=== PATIENT | female | born 1975 | race Two or more races ===

== ENCOUNTER 2016-09-21 23:36 | Emergency (ER) | payer OTHER ==
[~2016-09-21] VITALS: Ht 160 cm; Wt 4.0 kg
[~2016-09-21 23:36] MED LIST: AZIT250T6 PO; IBUP200T43 PO; ONDA4TAB12 PO; PRED20TA PO; PRED50TA PO
[2016-09-21 23:50] VITALS: BP 110/66
--- NOTE | 2016-09-21 23:50 | ED.ADGEN ---
Past History Past Medical History: No Pertinent History, Asthma, Bronchitis, Other Past Surgical History: No Surgical History, Other Alcohol Use: Occasionally Drug Use: None Adult General Chief Complaint Chief Complaint Right hand laceration HPI HPI Patient is a 40 year old female who presents with had a laceration. She states she cut it on a broken mirror. She is unsure when her last tetanus shot was. Review of Systems Review of Systems Constitutional: Denies fever or chills [] Eyes: Denies change in visual acuity, redness, or eye pain [] HENT: Denies nasal congestion or sore throat [] Respiratory: Denies cough or shortness of breath [] Cardiovascular: No additional information not addressed in HPI [] GI: Denies abdominal pain, nausea, vomiting, bloody stools or diarrhea [] : Denies dysuria or hematuria [] Musculoskeletal: Denies back pain or joint pain [] Integument: Denies rash or skin lesions, positive for laceration Neurologic: Denies headache, focal weakness or sensory changes [] Endocrine: Denies polyuria or polydipsia [] Current Medications Current Medications Current Medications Medications (Trade) Dose Ordered Sig/Camille Start Time Stop Time Status Last Admin Dose Admin Diphtheria/ Tetanus/Acell Pertussis (Boostrix) 0.5 ml ONCE ONCE 09/22/16 00:15 09/22/16 00:16 UNV 09/22/16 00:17 0.5 ML Lidocaine/Sodium Bicarbonate (Buffered Lidocaine 1%) 3 ml 1X ONCE 09/22/16 00:15 09/22/16 00:16 UNV 09/22/16 00:15 3 ML Allergies Allergies Allergies Coded Allergies Type Severity Reaction Last Updated Verified No Known Drug Allergies 02/23/15 No Physical Exam Physical Exam Constitutional: Well developed, well nourished, no acute distress, non-toxic appearance. [] HENT: Normocephalic, atraumatic, bilateral external ears normal, oropharynx moist, no oral exudates, nose normal. [] Eyes: PERRLA, EOMI, conjunctiva normal, no discharge. [] Neck: Normal range of motion, no tenderness, supple, no stridor. [] Cardiovascular:Heart rate regular rhythm, no murmur [] Lungs & Thorax: Bilateral breath sounds clear to auscultation [] Abdomen: Bowel sounds normal, soft, no tenderness, no masses, no pulsatile masses. [] Skin: Warm, dry, no erythema, no rash. 1 cm laceration over the right medial fifth digit near the M CP joint Back: No tenderness, no CVA tenderness. [] Extremities: No tenderness, no cyanosis, no clubbing, ROM intact, no edema. Sensation intact to light touch to radial medial and ulnar nerve dissertations, she is able to flex and extend at the PIP, DIP, MCP joint at the pinky of the right hand Neurologic: Alert and oriented X 3, normal motor function, normal sensory function, no focal deficits noted. [] Psychologic: Affect normal, judgement normal, mood normal. [] EKG EKG [] Radiology/Procedures Radiology/Procedures [] Course & Med Decision Making Course & Med Decision Making Pertinent Labs and Imaging studies reviewed. (See chart for details) Laceration repaired with 5 simple in her upper sutures. Patient's instructed to have these removed in 7-9 days. Return precautions given. Patient's agreeable plan be discharged in stable condition at this time. Her tetanus was updated. Final Impression Final Impression Finger laceration Problems: Dragon Disclaimer Dragon Disclaimer This electronic medical record was generated, in whole or in part, using a voice recognition dictation system. Laceration Repair Lac Repair Indication: Finger laceration Procedure: The patient was placed in the appropriate position and anesthesia around the medial fifth digit near the MCP joint, 1 mL of buffered lidocaine. The area was then cleansed with sterile saline. The laceration was and closed with 4-0 nylon 5 simple interrupted sutures were placed. The wound area was then dressed with sterile dressing. Total repaired wound length: 1 cm. The patient tolerated the procedure well. Complications: No complications noted. CESAR JANSEN MD September 21, 2016 23:50
[2016-09-22] MEDS ORDERED: DIPHTH,PERTUSS(ACELL),TET TOX 0.5 ML DISP.SYRIN. VAX IM ONE (00:15)
[2016-09-22] MEDS ORDERED: LIDOCAINE WITH 8.4% SOD BICARB 3 ML DISP.SYRIN. IJ ONE (00:15)
== END 2016-09-22 00:55 | disposition home or self-care (01) ==
LOC: ER 23:51
DX: S61.216A Laceration without foreign body of right little finger without damage to nail, initial encounter (principal); J45.909 Unspecified asthma, uncomplicated; W25.XXXA Contact with sharp glass, initial encounter; Y93.89 Activity, other specified; Y99.8 Other external cause status; Y92.89 Other specified places as the place of occurrence of the external cause
CPT/HCPCS: 12001; 90471; 90715; 99283-25

== ENCOUNTER 2016-10-02 03:00 | Emergency (ER) | payer OTHER ==
[~2016-10-02] VITALS: Ht 160 cm; Wt 4.0 kg
[2016-10-02 03:00] VITALS: BP 110/66
--- NOTE | 2016-10-02 03:17 | PHYS DOC ---
General Chief Complaint: suture removal Stated Complaint: REMOVE STITCHES Time Seen by MD: 03:13 Source: patient, old records Exam Limitations: no limitations Problems: History of Present Illness Initial Comments Pt is 40/F here for suture removal. Pt seen here 09/21 with right 5th finger laceration from broken mirror. 5 sutures repair, Td updated. Pt reports no complications or new sx, just needs sutures removed. Onset: last week Severity: mild Pain/Injury Location: right 5th finger Method of Injury: incised Modifying Factors: improves with other Allergies: Coded Allergies: No Known Drug Allergies (Unverified , 02/23/15) Past Medical History Medical History: no pertinent history Surgical History: noncontributory Social History Smoker: non-smoker Alcohol: none Drugs: none Review of Systems Constitutional: denies chills, denies fever Respiratory: denies cough, denies shortness of breath Cardiovascular: denies chest pain, denies palpitations Gastrointestinal: denies nausea, denies vomiting Musculoskeletal: see HPI Skin: see HPI Psychiatric/Neurological: denies numbness, denies paresthesia, denies weakness Physical Exam General Appearance: WD/WN, no apparent distress HEENT: normal ENT inspection Neck: non-tender, supple Cardiovascular/Respiratory: normal peripheral pulses, no respiratory distress Hand: normal ROM (sutures in place healing well no evidence infection.) Neurologic/Tendon: normal sensation, normal motor functions, normal tendon functions, responds to pain, no evidence tendon injury Psychiatric: alert, oriented x 3 Skin: normal color, warm/dry Orders, Labs, Meds 5 sutures removed by RN no complications. Departure Time of Disposition: 03:19 Disposition: 01 HOME, SELF-CARE Diagnosis: suture removal Condition: GOOD Patient Instructions: Suture Removal-Brief Additional Instructions: Please review patient education instructions. Follow up with your doctor or return to ED as needed. LENNIE DUKES DO October 02, 2016 03:16
== END 2016-10-02 03:35 | disposition home or self-care (01) ==
LOC: ER 03:00
DX: S61.216D Laceration without foreign body of right little finger without damage to nail, subsequent encounter (principal); X58.XXXD Exposure to other specified factors, subsequent encounter; Y99.8 Other external cause status; Y92.89 Other specified places as the place of occurrence of the external cause
CPT/HCPCS: 99281

== ENCOUNTER 2017-01-17 10:59 | Emergency (ER) | payer OTHER ==
[~2017-01-17] VITALS: Ht 160 cm; Wt 4.0 kg
--- NOTE | 2017-01-17 11:54 | PHYS DOC ---
Past History Past Medical History: No Pertinent History Past Surgical History: No Surgical History Alcohol Use: Heavy Drug Use: None Adult General Chief Complaint Chief Complaint: FOOT INJURY PAIN HPI HPI Patient is a 41-year-old female who is a current smoker who presents with complaints of ongoing cough for approximately 4 weeks. Also the patient today she sleeping her bathroom and injured her left foot and has been indoors on the foot no pain in the ankle or the knee. Patient denies any other injury. Review of Systems Review of Systems Constitutional: Denies fever or chills [] Eyes: Denies change in visual acuity, redness, or eye pain [] HENT: Denies nasal congestion. Yes to sore throat and cough Respiratory: No shortness of breath [] Cardiovascular: No chest pain GI: Denies abdominal pain, nausea, vomiting, : Denies dysuria or hematuria [] Musculoskeletal: Denies back pain or joint pain [] Integument: Denies rash or skin lesions [] Neurologic: Denies headache, focal weakness or sensory changes [] Current Medications Current Medications Current Medications Medications (Trade) Dose Ordered Sig/Camille Start Time Stop Time Status Last Admin Dose Admin Acetaminophen/ Hydrocodone Bitart (Lortab 5/325) 1 tab 1X ONCE 01/17/17 12:00 01/17/17 12:01 Ibuprofen (Motrin) 400 mg 1X ONCE 01/17/17 12:00 01/17/17 12:01 Allergies Allergies Allergies Coded Allergies Type Severity Reaction Last Updated Verified No Known Drug Allergies 02/23/15 No Physical Exam Physical Exam Constitutional: Well developed, well nourished, no acute distress, non-toxic appearance. [] HENT: Normocephalic, atraumatic, bilateral external ears normal, tympanic membranes clear, no signs of mastoiditis, oropharynx moist with mild erythema, airways patent, no masses, no oral exudates, nose normal. [] Eyes: EOMI, conjunctiva normal, no discharge. [] Neck: Normal range of motion, no tenderness, supple, no stridor. No LAD, no meningeal signs Cardiovascular:Heart rate regular rhythm, no murmur, equal pulses, normal perfusion Lungs & Thorax: Bilateral breath sounds clear to auscultation, no tachypnea Abdomen: No distention Skin: Warm, dry, no erythema, no rash. Exception: Bruising over the dorsum of the foot left is alsosoft tissue swelling Back: No tenderness, Extremities: No tenderness, no cyanosis, no clubbing, ROM intact, no edema. Exception: Left foot swelling at the dorsum, distally is neurovascularly intact , motor function is normal. No pain at the ankle or the knee. Neurologic: Alert and oriented X 3, normal motor function,no focal deficits noted. [] Psychologic: Affect normal, judgement normal, mood normal. [] Current Patient Data Vital Signs Vital Signs Date Time Temp Pulse Resp B/P (MAP) Pulse Ox O2 Delivery O2 Flow Rate FiO2 01/17/17 11:40 98.1 80 18 99 Room Air EKG EKG [] Radiology/Procedures Radiology/Procedures no fracture or dislocation[] Course & Med Decision Making Course & Med Decision Making Pertinent Labs and Imaging studies reviewed. (See chart for details) Smoke cessation counseling provided, total time 3 minutes, risks and benefits explained including but not limited to cancer risk. [] Dragon Disclaimer Dragon Disclaimer This chart was dictated in whole or in part using Voice Recognition software in a busy, high-work load, and often noisy Emergency Department environment. It may contain unintended and wholly unrecognized errors or omissions. Departure Departure: Impression: Primary Impression: Cough Additional Impressions: Foot injury Tobacco abuse Tobacco abuse counseling Disposition: HOME, SELF-CARE Condition: STABLE Referrals: PCP,NO (PCP) please establish primary care and follow up for recheck and re-evaluation in one week. Please stop smoking Problem Qualifiers Meagan NOBLE MD Jan 17, 2017 11:54
[2017-01-17] MEDS ORDERED: IBUPROFEN 400 MG TABLET. PO ONE (12:00)
[2017-01-17] MEDS ORDERED: HYDROcodone/APAP 5/325MG 1 TAB TABLET PO ONE (12:00)
--- NOTE | 2017-01-17 13:31 | RAD ---
Examination: 3 views of the left foot History: History of injury to the left foot, bruising Comparison: None available. Findings/impression: The alignment of the tarsal bones, tarsometatarsal joints, interphalangeal joints grossly appears unremarkable. There is subtle lucent line identified at the base of the fifth metatarsal seen only on the lateral view is likely artifactual and less likely subtle fracture as this is not visualized on the oblique or the AP view. Moderate mild soft tissue swelling identified in the dorsum of the foot likely secondary to soft tissue injury. If there is focal pain, follow-up radiograph in 5-7 days can be considered.
[2017-01-17 13:43] VITALS: BP 145/65
== END 2017-01-17 13:30 | disposition home or self-care (01) ==
LOC: ER 11:03
DX: S99.922A Unspecified injury of left foot, initial encounter (principal); R05 Cough; J02.9 Acute pharyngitis, unspecified; F17.210 Nicotine dependence, cigarettes, uncomplicated; X58.XXXA Exposure to other specified factors, initial encounter; Y93.89 Activity, other specified; Y99.8 Other external cause status; Y92.002 Bathroom of unspecified non-institutional (private) residence as the place of occurrence of the external cause
CPT/HCPCS: 73630; 99284-25

== ENCOUNTER 2017-02-06 16:17 | Emergency (ER) | payer OTHER ==
[2017-02-06 16:20] VITALS: BP 112/76
[2017-02-06] MEDS ORDERED: VALA10005 PO (17:05)
--- NOTE | 2017-02-06 17:06 | PHYS DOC ---
Past History Past Medical History: No Pertinent History Past Surgical History: No Surgical History Alcohol Use: Heavy Drug Use: None Adult General Chief Complaint Chief Complaint: VAGINAL PROBLEM HPI HPI Patient is a 41-year-old female who complains of pain in the vaginal area for the last 3 days after she had sex. She's never had pain like this before. She did have a doctor tell her when she was 23 that she had herpes based on a blood test but she has never had an outbreak to her knowledge. This pain began about 1 hour after having intercourse, it did not happen during intercourse. Review of Systems Review of Systems Constitutional: Denies fever or chills [] GI: Denies abdominal pain, nausea, vomiting : She has pain with urination which sounds like it is related to the external genital pain that she is describing. Allergies Allergies Allergies Coded Allergies Type Severity Reaction Last Updated Verified No Known Drug Allergies 02/23/15 No Physical Exam Physical Exam Constitutional: Well developed, well nourished, no acute distress, non-toxic appearance. [] HENT: Normocephalic, atraumatic, bilateral external ears normal, nose normal. [ ] Eyes: conjunctiva normal, no discharge. [] Neck: Normal range of motion, no stridor. [] Pelvic exam: External genitalia: No discharge noted. There is a lesion on the left vaginal introitus/labia that has a red base and vesicles on the basis. It does appear consistent with herpes. There is no evidence of trauma. There is no abscess or swelling or other visible abnormality. Skin: Warm, dry, no erythema, no rash. [] Extremities: No tenderness, no cyanosis, no clubbing, ROM intact, no edema. [] Neurologic: Alert and oriented X 3, normal motor function, normal sensory function, no focal deficits noted. [] EKG EKG [] Radiology/Procedures Radiology/Procedures [] Course & Med Decision Making Course & Med Decision Making Pertinent Labs and Imaging studies reviewed. (See chart for details) 41-year-old female complaining of severe pain in the vaginal area, exam is concerning for possible herpes outbreak. I did take a viral swab. I offered to start the patient on an antiviral and she would like to do that. We discussed the presumptive diagnosis at this point. The patient was not able to tolerate a speculum pelvic exam for any other testing or evaluation. [] Dragon Disclaimer Dragon Disclaimer This chart was dictated in whole or in part using Voice Recognition software in a busy, high-work load, and often noisy Emergency Department environment. It may contain unintended and wholly unrecognized errors or omissions. Departure Departure: Impression: Primary Impression: Vaginal pain Additional Impression: Vaginal lesion Disposition: HOME, SELF-CARE Condition: STABLE Referrals: PCP,NO (PCP) Patient Instructions: Genital Herpes Additional Instructions: As we discussed, the area that is causing your pain does look to me like it might be herpes. We took a test today which will tell us for sure whether it is or not. Use condoms to avoid spreading to your partner. We will start you on an antiviral today in case it is herpes. Follow-up with your [facility] doctor for test results and further treatment. Scripts Valacyclovir Hcl (VALTREX) 1,000 Mg Tablet 1 TAB PO BID, #20 TAB Prov: HUE FLOWER MD 02/06/17 Problem Qualifiers HUE FLOWER MD Feb 06, 2017 17:06
[2017-02-06] MEDS ORDERED: LIDOCAINE 2% JELLY 10ML IN APPLICATOR. MM ONE (17:15)
== END 2017-02-06 17:14 | disposition home or self-care (01) ==
LOC: ER 16:17
DX: N89.8 Other specified noninflammatory disorders of vagina (principal); R10.2 Pelvic and perineal pain
CPT/HCPCS: 99283

== ENCOUNTER 2017-07-06 22:53 | Emergency (ER) | payer OTHER ==
[~2017-07-06] VITALS: Ht 160 cm; Wt 61.2 kg
[~2017-07-06 22:53] MED LIST changes: -IBUP200T43 PO; +IBUP200T44 PO; +VALA10005 PO
--- NOTE | 2017-07-06 22:56 | ED.ADGEN ---
Past History Past Medical History: No Pertinent History Past Surgical History: No Surgical History Alcohol Use: Occasionally Drug Use: None Adult General Chief Complaint Chief Complaint " .. I has + test last week.. and today started getting back and pelvic pain.. and spotting... " [facility] HPI Patient is a 41 year old female who presents with above hx and complaints positive test in lower abdomen, back pain and spotting. Patient has had a history of prior 7 pregnancies 4 live births 4 miscarriages. Hx of 40 sexual partners in her lifetime. No history of STDs. No history of travel. No history immunosuppression. No history of trauma. Patient normally follows with [facility] doctors. Review of Systems Review of Systems Constitutional: Denies fever or chills [] Eyes: Denies change in visual acuity, redness, or eye pain [] HENT: Denies nasal congestion or sore throat [] Respiratory: Denies cough or shortness of breath [] Cardiovascular: No additional information not addressed in HPI [] GI: Denies abdominal pain, nausea, vomiting, bloody stools or diarrhea [] : Denies dysuria or hematuria [] Musculoskeletal: Denies back pain or joint pain [] Integument: Denies rash or skin lesions [] Neurologic: Denies headache, focal weakness or sensory changes [] Endocrine: Denies polyuria or polydipsia [] All other systems were reviewed and found to be within normal limits, except as documented in this note. Family History Family History Noncontributory presentation Current Medications Current Medications Current Medications Medications (Trade) Dose Ordered Sig/Camille Start Time Stop Time Status Last Admin Dose Admin Ceftriaxone Sodium 1 gm/ Sodium Chloride 50 ml @ 100 mls/hr 1X ONCE 07/07/17 01:30 07/07/17 01:59 UNV Ceftriaxone Sodium (Rocephin) 1 gm 1X ONCE 07/07/17 02:00 07/07/17 02:01 DC 07/07/17 02:00 1 GM Lactated Ringer's 1,000 ml @ 1,000 mls/hr Q1H 07/06/17 23:30 07/07/17 00:29 DC 07/06/17 00:50 1,000 MLS/HR See nursing for home meds. No known allergies Allergies Allergies Allergies Coded Allergies Type Severity Reaction Last Updated Verified No Known Drug Allergies 10/10/15 No Physical Exam Physical Exam Constitutional: Well developed, well nourished, moderately acute distress, non- toxic appearance. [] HENT: Normocephalic, atraumatic, bilateral external ears normal, oropharynx moist, no oral exudates, nose normal. [] Eyes: PERRLA, EOMI, conjunctiva normal, no discharge. [] Neck: Normal range of motion, no tenderness, supple, no stridor. [] Cardiovascular:Heart rate regular rhythm, no murmur [] Lungs & Thorax: Bilateral breath sounds clear to auscultation [] Abdomen: Bowel sounds normal, soft, suprapubic tenderness, no masses, no pulsatile masses. [] Mild spotting from os. Mild cervical motion tenderness. Skin: Warm, dry, no erythema, no rash. [] Back: Lumbar sacral pain no CVA tenderness. [] Extremities: No tenderness, no cyanosis, no clubbing, ROM intact, no edema. [] Neurologic: Alert and oriented X 3, normal motor function, normal sensory function, no focal deficits noted. [] Psychologic: Affect normal, judgement normal, mood normal. [] Current Patient Data Lab Results Laboratory Tests Test 07/06/17 23:03 07/06/17 23:11 07/06/17 23:19 Urine Collection Type Unknown Urine Color Yellow Urine Clarity Hazy Urine pH 5.5 Urine Specific Lorraine >=1.030 Urine Protein 30 mg/dl (NEG-TRACE) Urine Glucose (UA) Neg mg/dL (NEG) Urine Ketones (Stick) Trace mg/dL (NEG) Urine Blood Neg (NEG) Urine Nitrite Neg (NEG) Urine Bilirubin Neg (NEG) Urine Urobilinogen Dipstick 0.2 mg/dL (0.2 mg/dL) Urine Leukocyte Esterase Mod (NEG) Urine RBC 0 /HPF (0-2) Urine WBC 5-10 /HPF (0-4) Urine Squamous Epithelial Cells Many /LPF Urine Bacteria Few /HPF (0-FEW) Urine Opiates Screen Neg (NEG) Urine Methadone Screen Neg (NEG) Urine Barbiturates Neg (NEG) Urine Phencyclidine Screen Neg (NEG) Urine Amphetamine/Methamphetamine Pos (NEG) Urine Benzodiazepines Screen Neg (NEG) Urine Cocaine Screen Neg (NEG) Urine Cannabinoids Screen Pos (NEG) Urine Ethyl Alcohol Neg (NEG) POC Urine HCG, Qualitative hcg positive (Negative) White Blood Count 9.2 x10^3/uL (4.0-11.0) Red Blood Count 3.86 x10^6/uL (3.50-5.40) Hemoglobin 12.2 g/dL (12.0-15.5) Hematocrit 34.4 % (36.0-47.0) L Mean Corpuscular Volume 89 fL (79-100) Mean Corpuscular Hemoglobin 32 pg (25-35) Mean Corpuscular Hemoglobin Concent 35 g/dL (31-37) Red Cell Distribution Width 12.3 % (11.5-14.5) Platelet Count 278 x10^3/uL (140-400) Neutrophils (%) (Auto) 68 % (31-73) Lymphocytes (%) (Auto) 25 % (24-48) Monocytes (%) (Auto) 6 % (0-9) Eosinophils (%) (Auto) 1 % (0-3) Basophils (%) (Auto) 0 % (0-3) Neutrophils # (Auto) 6.2 x10^3uL (1.8-7.7) Lymphocytes # (Auto) 2.3 x10^3/uL (1.0-4.8) Monocytes # (Auto) 0.5 x10^3/uL (0.0-1.1) Eosinophils # (Auto) 0.1 x10^3/uL (0.0-0.7) Basophils # (Auto) 0.0 x10^3/uL (0.0-0.2) Prothrombin Time 9.8 SEC (9.4-11.4) Prothrombin Time INR 1.0 (0.9-1.1) PTT 24 SEC (23-33) Maternal Serum HCG Beta Subunit 75861 mIU/mL (0-6) H Sodium Level 136 mmol/L (136-145) Potassium Level 3.3 mmol/L (3.5-5.1) L Chloride Level 100 mmol/L (98-107) Carbon Dioxide Level 25 mmol/L (21-32) Anion Gap 11 (6-14) Blood Urea Nitrogen 18 mg/dL (7-20) Creatinine 0.5 mg/dL (0.6-1.0) L Estimated GFR (Cockcroft-Gault) 137.4 Glucose Level 96 mg/dL (70-99) Calcium Level 8.5 mg/dL (8.5-10.1) Total Bilirubin 0.3 mg/dL (0.2-1.0) Direct Bilirubin 0.1 mg/dL (0.0-0.2) Aspartate Amino Transferase (AST) 13 U/L (15-37) L Alanine Aminotransferase (ALT) 15 U/L (14-59) Alkaline Phosphatase 53 U/L (46-116) Total Protein 7.1 g/dL (6.4-8.2) Albumin 3.8 g/dL (3.4-5.0) Lipase 124 U/L (73-393) EKG EKG [] Radiology/Procedures Radiology/Procedures Ultrasound shows intrauterine 8 weeks 1 day. Has a left dermoid cyst . Course & Med Decision Making Course & Med Decision Making Pertinent Labs and Imaging studies reviewed. (See chart for details).. She continue pad counts. Patient to follow-up cultures for primary care. Patient take Keflex 500x3 times a day. Take Tylenol for pain. Avoid illicit drug use. Stop smoking. Must follow-up cultures. Continue vitamins. [] Final Impression Final Impression 1. Abdomen Pain[] 2. Threaten miscarriage 3. Patient blood type B-neg. 4. Beta hCG is 87,188 5. Urinary tract infection 6. Polysubstance Abuse Problems: Dragon Disclaimer Dragon Disclaimer This electronic medical record was generated, in whole or in part, using a voice recognition dictation system. HERMINIA MCCLAIN MD Jul 06, 2017 22:56
[2017-07-06] MEDS ORDERED: IV RINGERS SOLUTION,LACTATED 1,000 ML IV SCH (23:30)
[2017-07-06 23:50] LABS: BASO % 0 % (0-3); EOS # 0.1 x10^3/uL (0.0-0.7); EOS % 1 % (0-3); HEMATOCRIT 34.4 % (36.0-47.0); HEMOGLOBIN 12.2 g/dL (12.0-15.5); LYMPH # 2.3 x10^3/uL (1.0-4.8); LYMPH % 25 % (24-48); MEAN CORPUSCULAR HEMOGLOBIN 32 pg (25-35); MEAN CORPUSCULAR HGB CONC 35 g/dL (31-37); MEAN CORPUSCULAR VOLUME 89 fL (79-100); MONO # 0.5 x10^3/uL (0.0-1.1); MONO % 6 % (0-9); NEUT # 6.2 x10^3uL (1.8-7.7); NEUT % 68 % (31-73); PLATELET COUNT 278 x10^3/uL (140-400); RED BLOOD COUNT 3.86 x10^6/uL (3.50-5.40); RED CELL DISTRIBUTION WIDTH 12.3 % (11.5-14.5); WHITE BLOOD COUNT 9.2 x10^3/uL (4.0-11.0)
[2017-07-06 23:54] LABS: BILIRUBIN,URINE NEG (NEG); CLARITY,URINE HAZY; COLOR,URINE YELLOW; GLUCOSE,URINE NEG (NEG)
[2017-07-06 23:55] LABS: BACTERIA,URINE FEW /HPF (0-FEW); NITRITE,URINE NEG (NEG); RBC,URINE 0 /HPF (0-2); SQUAMOUS EPITHELIAL CELL,UR MANY /LPF; UROBILINOGEN,URINE 0.2 mg/dL (0.2 mg/dL)
[2017-07-06 23:58] LABS: BARBITURATES NEG (NEG); BENZODIAZEPINES NEG (NEG); CANNABINOIDS POS (NEG); COCAINE NEG (NEG); METHADONE NEG (NEG); OPIATES NEG (NEG); PHENCYCLIDINE NEG (NEG)
[2017-07-07 00:01] LABS: ALBUMIN 3.8 g/dL (3.4-5.0); CALCIUM 8.5 mg/dL (8.5-10.1); CREATININE 0.5 mg/dL (0.6-1.0); DIRECT BILIRUBIN 0.1 mg/dL (0.0-0.2); GFR 137.4; POTASSIUM 3.3 mmol/L (3.5-5.1); TOTAL BILIRUBIN 0.3 mg/dL (0.2-1.0); TOTAL PROTEIN 7.1 g/dL (6.4-8.2)
[2017-07-07 00:04] LABS: AMPHETAMINE/METHAMPHETAMINE POS (NEG)
--- NOTE | 2017-07-07 00:37 | RAD ---
Ultrasound OB less than 14 weeks with transvaginal 07/06/2017 Clinical indication: Pelvic pain, bleeding. Unsure LMP. COMPARISON: None. FINDINGS: Transabdominal and transvaginal images were performed. The uterus measures 11.0 x 3.2 x 6.2 cm in length. The cervix is long and closed measuring 3.8 cm in length. There is a single intrauterine with a crown lump rump length of 1.7 cm compatible with estimated gestational age of 8 weeks and 1 days. heart rate is identified estimated at 173 bpm. Eccentric yolk sac is identified measuring 0.3 cm. The left ovary measures 3.4 x 2.0 x 2.2 cm with normal color Doppler imaging. There is a round circumscribed mixed hypoechoic and hyperechoic structure on the left ovary measuring 2.2 x 1.9 x 2.1 cm. Right ovary measures 1.8 x 1.6 x 1.9 cm with normal color Doppler imaging. IMPRESSION: 1. Single living intrauterine with estimated gestational age of 8 weeks 1 day and estimated heart rate 173 bpm. 2. Left ovarian mixed hypo and hyperechoic structure, may represent an ovarian dermoid. Correlation with more remote imaging is recommended, if available. If not, follow-up ultrasound in 3 months is recommended to assess for stability. Electronically signed by: Juan Rey MD (07/07/2017 12:34 AM) [id number]
[2017-07-07] MEDS ORDERED: CEPH-264 PO (01:39)
[2017-07-07] MEDS ORDERED: cefTRIAXone IV Push 1 GM VIAL. IVP ONE (02:00)
[2017-07-07 04:11] VITALS: BP 123/72
[2017-07-08 01:10] LABS: HCV ANTIBODY <0.1 s/co ratio (0.0-0.9); HEP A IGM ABDY Negative (Negative)
[2017-07-08 14:09] LABS: CHLAMYDIA PROBE Negative (Negative)
== END 2017-07-07 04:31 | disposition home or self-care (01) ==
LOC: ER 22:53
DX: R10.30 Lower abdominal pain, unspecified (principal); O20.0 Threatened abortion; O23.41 Unspecified infection of urinary tract in pregnancy, first trimester; O99.321 Drug use complicating pregnancy, first trimester; F19.10 Other psychoactive substance abuse, uncomplicated; Z3A.08 8 weeks gestation of pregnancy
CPT/HCPCS: 36415; 76801; 76817; 80048; 80074; 80076; 80307; 81001; 81025; 83690; 84702; 85025; 85610; 85730; 86593; 86703; 86850; 86900; 86901; 87491; 87591; 96361; 96374; 99285; J0696; J2791; J7120; G0479

== ENCOUNTER 2017-09-20 07:45 | Emergency (ER) | payer OTHER ==
[2017-09-20 07:45] VITALS: BP 136/60
--- NOTE | 2017-09-20 08:26 | PHYS DOC ---
Past History Past Medical History: Asthma Past Surgical History: No Surgical History Smoking: Cigarettes Alcohol Use: Heavy Drug Use: Marijuana, Methamphetamine Adult General Chief Complaint Chief Complaint: MULTIPLE COMPLAINTS HPI HPI 41-year-old female patient complaining of discomfort feeling in top of her head and states she feels discomfortable feeling in her head with blood moving from her head to her neck and causing swelling of her neck for the last 2 years and nobody paid attention to her problem event she did go to several physician. Patient talking very anxious and using "F" word frequently and became irritable often. Patient states she drinks one bottle of abi every day that she is not working for all of her life but does not consider herself as an alcoholic and states she can stop drinking at any day that she wants. Patient states she is off for several days and drinking every day. Patient denies suicidal and homicidal ideation and history of mental problem and became very anxious regarding the question and re-explained her problem again. Patient states she is going to because of her problem. Review of Systems Review of Systems Constitutional: Denies fever or chills [] Eyes: Denies change in visual acuity, redness, or eye pain [] HENT: Denies nasal congestion or sore throat [] Respiratory: Denies cough or shortness of breath [] Cardiovascular: No additional information not addressed in HPI [] GI: Denies abdominal pain, nausea, vomiting, bloody stools or diarrhea [] : Denies dysuria or hematuria [] Musculoskeletal: Denies back pain or joint pain [] Integument: Denies rash or skin lesions [] Neurologic: Denies headache, focal weakness or sensory changes [] Endocrine: Denies polyuria or polydipsia [] All other systems were reviewed and found to be within normal limits, except as documented in this note. Allergies Allergies Allergies Coded Allergies Type Severity Reaction Last Updated Verified No Known Drug Allergies 02/23/15 No Physical Exam Physical Exam Constitutional: Well nourished, mild distress, non-toxic appearance, very anxious , smell of alcohol on breath. HENT: Normocephalic, atraumatic, bilateral external ears normal, oropharynx moist, no oral exudates, nose normal. [] Eyes: PERRLA, EOMI, conjunctiva normal, no discharge. [] Neck: Normal range of motion, no tenderness, supple, no stridor. [] Cardiovascular:Heart rate regular rhythm, no murmur [] Lungs & Thorax: Bilateral breath sounds clear to auscultation [] Abdomen: Bowel sounds normal, soft, no tenderness, no masses, no pulsatile masses. [] Skin: Warm, dry, no erythema, no rash. [] Back: No tenderness, no CVA tenderness. [] Extremities: No tenderness, no cyanosis, no clubbing, ROM intact, no edema. [] Neurologic: Alert and oriented X 3, normal motor function, normal sensory function, no focal deficits noted. [] Psychologic: Anxious, not suicidal and homicidal EKG EKG [] Radiology/Procedures Radiology/Procedures [] Course & Med Decision Making Course & Med Decision Making Evaluation of patient in ER showed 41-year-old female patient with history of alcohol abuse presented to ER with complaining of chronic problem of feeling of pulsation in her brain and her neck for 2 years. Patient was very anxious and an defensive and tearful. Patient informed that she needs to follow-up with her primary care physician regarding obtaining some blood test that is not available in ER and CT of head was ordered. While patient was waiting for CT, she became more anxious and decided to leave AMA without signing an AMA form. She walked out of ER without any problem. Dragon Disclaimer Dragon Disclaimer This electronic medical record was generated, in whole or in part, using a voice recognition dictation system. Departure Departure: Impression: Primary Impression: Left against medical advice Additional Impression: Alcohol abuse Disposition: 07 AGAINST MEDICAL ADVICE (At 0820) Condition: STABLE Referrals: CARLOS ZHAO (PCP) Problem Qualifiers LEONARDO MASSEY MD September 20, 2017 08:25
== END 2017-09-20 08:20 | disposition left against medical advice (07) ==
LOC: ER 07:45
DX: F10.10 Alcohol abuse, uncomplicated (principal); R51 Headache; R22.1 Localized swelling, mass and lump, neck; J45.909 Unspecified asthma, uncomplicated; F17.210 Nicotine dependence, cigarettes, uncomplicated; F12.10 Cannabis abuse, uncomplicated; F15.10 Other stimulant abuse, uncomplicated
CPT/HCPCS: 99281

== ENCOUNTER → 2017-09-20 | Outpatient (CLI) | payer OTHER ==
[~2017-09-20] MED LIST changes: +CEPH-264 PO
--- NOTE | 2017-09-20 11:43 | RAD ---
EXAM: Thyroid sonogram. HISTORY: Neck fullness. TECHNIQUE: Sonographic imaging of the thyroid was performed. COMPARISON: None. FINDINGS: The right thyroid lobe measures 4.0 x 1.8 x 1.4 cm. The left thyroid lobe measures 4.5 x 1.6 x 1.8 cm. The isthmus measures 2.6 mm. No solid or cystic thyroid lesion is seen. IMPRESSION: Unremarkable thyroid sonogram. Electronically signed by: Mamta Rosado MD (09/20/2017 11:40 AM) [id number]
== END | disposition home or self-care (01) ==
LOC: US 09:31
PROVIDERS: ATTEND Physician Assistant Medical
DX: R22.1 Localized swelling, mass and lump, neck (principal)
CPT/HCPCS: 76536

== ENCOUNTER 2018-09-08 18:02 | Emergency (ER) | payer OTHER ==
[~2018-09-08] VITALS: Ht 160 cm; Wt 56.7 kg
--- NOTE | 2018-09-08 18:11 | ED.ADGEN ---
Past History Past Medical History: Asthma Past Surgical History: No Surgical History Smoking: Cigarettes Alcohol Use: Heavy Drug Use: Marijuana, Methamphetamine Adult General Chief Complaint Chief Complaint ".. I got bugs. and rashes.. my apt. is infested.. Some my rashes have been present for years..." HPI HPI Patient is a 42 year old female who presents with above hx and complaints of itching. She has history of mites and indigestion at bed bugs in her current apartment. Patient is very anxious about bug bites and the mites in her hair. Patient is very anxious. No History immunosuppression. Does have a history of tobacco use, marijuana use and amphetamine use. Patient does have findings of some small insect bites. No history of travel. Denies specific ill contacts. Patient does follow up with primary care. Review of Systems Review of Systems Constitutional: Denies fever or chills [] Eyes: Denies change in visual acuity, redness, or eye pain [] HENT: Denies nasal congestion or sore throat [] Respiratory: Denies cough or shortness of breath [] Cardiovascular: No additional information not addressed in HPI [] GI: Denies abdominal pain, nausea, vomiting, bloody stools or diarrhea [] : Denies dysuria or hematuria [] Musculoskeletal: Denies back pain or joint pain [] Integument: Plaints of mites, rash and skin lesions [] Neurologic: Denies headache, focal weakness or sensory changes [] Endocrine: Denies polyuria or polydipsia [] All other systems were reviewed and found to be within normal limits, except as documented in this note. Family History Family History Noncontributory Current Medications Current Medications Current Medications Medications (Trade) Dose Ordered Sig/Camille Start Time Stop Time Status Last Admin Dose Admin Cephalexin HCl (Keflex) 500 mg 1X ONCE 09/08/18 20:00 09/08/18 20:01 DC 09/08/18 19:58 500 MG Diphenhydramine HCl (Benadryl) 50 mg 1X ONCE 09/08/18 20:00 09/08/18 20:01 DC 09/08/18 19:58 50 MG Prednisone (Prednisone) 60 mg 1X ONCE 09/08/18 20:00 09/08/18 20:01 DC 09/08/18 19:59 60 MG Allergies Allergies Allergies Coded Allergies Type Severity Reaction Last Updated Verified No Known Drug Allergies 02/23/15 No Physical Exam Physical Exam Constitutional: Moderately acute motional distress, does have the appearance as if she is under the influence of an illicit drug. HENT: Normocephalic, atraumatic, bilateral external ears normal, oropharynx moist, no oral exudates, nose normal. [] Eyes: PERRLA, EOMI, conjunctiva normal, no discharge. [] Neck: Normal range of motion, no tenderness, supple, no stridor. [] Cardiovascular:Heart rate regular rhythm, no murmur [] Lungs & Thorax: Bilateral breath sounds equal apex with scattered wheezes on auscultation [] Abdomen: Bowel sounds normal, soft, no tenderness, no masses, no pulsatile masses. [] Skin: Warm, dry, no erythema, does have findings of small insect bites. Does have findings of some mites in her hair. Back: No tenderness, no CVA tenderness. [] Extremities: No tenderness, no cyanosis, no clubbing, ROM intact, no edema. [] Neurologic: Alert and oriented X 3, normal motor function, normal sensory function, no focal deficits noted. [] Psychologic: Affect very anxious, judgement normal, mood normal. [] Current Patient Data Vital Signs Vital Signs Date Time Temp Pulse Resp B/P (MAP) Pulse Ox O2 Delivery O2 Flow Rate FiO2 09/08/18 20:09 98 18 125/86 (99) 98 Room Air 09/08/18 18:20 97.9 Lab Results Laboratory Tests Test 09/08/18 18:25 09/08/18 18:31 Urine Collection Type Unknown Urine Color Yellow Urine Clarity Hazy Urine pH 6.0 Urine Specific [place] >=1.030 Urine Protein Trace (NEG-TRACE) Urine Glucose (UA) Neg mg/dL (NEG) Urine Ketones (Stick) 15 mg/dL (NEG) Urine Blood Mod (NEG) Urine Nitrite Neg (NEG) Urine Bilirubin Neg (NEG) Urine Urobilinogen Dipstick 1 mg/dL (0.2 mg/dL) Urine Leukocyte Esterase Trace (NEG) Urine RBC 3-5 /HPF (0-2) Urine WBC 1-4 /HPF (0-4) Urine Squamous Epithelial Cells Few /LPF Urine Bacteria Few /HPF (0-FEW) Urine Hyaline Casts Occ /HPF Urine Mucus Slight /LPF Urine Opiates Screen Neg (NEG) Urine Methadone Screen Neg (NEG) Urine Barbiturates Neg (NEG) Urine Phencyclidine Screen Neg (NEG) Urine Amphetamine/Methamphetamine Pos (NEG) Urine Benzodiazepines Screen Neg (NEG) Urine Cocaine Screen Neg (NEG) Urine Cannabinoids Screen Pos (NEG) Urine Ethyl Alcohol Neg (NEG) POC Urine HCG, Qualitative hcg negative (Negative) EKG EKG [] Radiology/Procedures Radiology/Procedures [] Course & Med Decision Making Course & Med Decision Making Pertinent Labs and Imaging studies reviewed. (See chart for details) Recommended patient either exterminate insects in her apartment or move. Patient given a prescription for permethrin. Patient take Benadryl 50 mg 4 times a day for itching. Patient follow-up primary care. Patient encouraged to stop smoking. Patient encouraged not to use illicit drugs. Return if any concerns. Patient encouraged for chronic rashes or skin lesions to follow-up with a professor of management possible biopsy. [] Final Impression Final Impression 1. Allergies 2. Exposer to Mites/ Bed bugs[] 3. Tobacco, marijuana and amphetamine use 4. Anxiety disorder Dragon Disclaimer Dragon Disclaimer This electronic medical record was generated, in whole or in part, using a voice recognition dictation system. Discharge Summary Visit Information Final Diagnosis Problems Medical Problems: (1) Allergic reaction Status: Acute (2) Infestation, mites Status: Acute Brief Hospital Course Allergies Allergies Coded Allergies Type Severity Reaction Last Updated Verified No Known Drug Allergies 02/23/15 No Vital Signs Vital Signs Date Time Temp Pulse Resp B/P (MAP) Pulse Ox O2 Delivery O2 Flow Rate FiO2 09/08/18 20:09 98 18 125/86 (99) 98 Room Air 09/08/18 18:20 97.9 Lab Results Laboratory Tests Test 09/08/18 18:25 09/08/18 18:31 Urine Collection Type Unknown Urine Color Yellow Urine Clarity Hazy Urine pH 6.0 Urine Specific [place] >=1.030 Urine Protein Trace (NEG-TRACE) Urine Glucose (UA) Neg mg/dL (NEG) Urine Ketones (Stick) 15 mg/dL (NEG) Urine Blood Mod (NEG) Urine Nitrite Neg (NEG) Urine Bilirubin Neg (NEG) Urine Urobilinogen Dipstick 1 mg/dL (0.2 mg/dL) Urine Leukocyte Esterase Trace (NEG) Urine RBC 3-5 /HPF (0-2) Urine WBC 1-4 /HPF (0-4) Urine Squamous Epithelial Cells Few /LPF Urine Bacteria Few /HPF (0-FEW) Urine Hyaline Casts Occ /HPF Urine Mucus Slight /LPF Urine Opiates Screen Neg (NEG) Urine Methadone Screen Neg (NEG) Urine Barbiturates Neg (NEG) Urine Phencyclidine Screen Neg (NEG) Urine Amphetamine/Methamphetamine Pos (NEG) Urine Benzodiazepines Screen Neg (NEG) Urine Cocaine Screen Neg (NEG) Urine Cannabinoids Screen Pos (NEG) Urine Ethyl Alcohol Neg (NEG) Bedside Urine HCG, Qualitative hcg negative (Negative) Brief Hospital Course Ms. Justice is a 42 old female who presented with hair mites, insect bites. Discharge Information Condition at Discharge: Improved, Stable Disposition/Orders: D/C to Home Dischare Medications Current Medications Prednisone (Prednisone) 60 mg 1X ONCE PO Last administered on 09/08/18at 19:59; Admin Dose 60 MG; Start 09/08/18 at 20:00; Stop 09/08/18 at 20:01; Status DC Diphenhydramine HCl (Benadryl) 50 mg 1X ONCE PO Last administered on 09/08/18at 19:58; Admin Dose 50 MG; Start 09/08/18 at 20:00; Stop 09/08/18 at 20:01; Status DC Cephalexin HCl (Keflex) 500 mg 1X ONCE PO Last administered on 09/08/18at 19:58; Admin Dose 500 MG; Start 09/08/18 at 20:00; Stop 09/08/18 at 20:01; Status DC Active Scripts Active Keflex (Cephalexin) 500 Mg Capsule 500 Mg PO TID 7 Days Permethrin 60 Gm Cream..g. 60 Gm TP WEEKLY Prednisone 50 Mg Tablet 50 Mg PO DAILY 5 Days Keflex (Cephalexin) 500 Mg Capsule 500 Mg PO TID 7 Days Valtrex (Valacyclovir Hcl) 1,000 Mg Tablet 1 Tab PO BID Prednisone 20 Mg Tablet 1 Tab PO BID Azithromycin Tablet (Azithromycin) 250 Mg Tablet 500 Mg PO DAILY Prednisone 50 Mg Tablet 1 Tab PO DAILY Ondansetron Odt (Ondansetron) 4 Mg Tab.rapdis 4 Mg PO Q6-8HRS PRN Reported Motrin Ib (Ibuprofen) 200 Mg Tablet 800 Mg PO Dragon Disclaimer This chart was dictated in whole or in part using Voice Recognition software in a busy, high-work load, and often noisy Emergency Department environment. It may contain unintended and wholly unrecognized errors or omissions. HERMINIA MCCLAIN MD Sep 08, 2018 18:11
[2018-09-08 18:43] LABS: BILIRUBIN,URINE NEG (NEG); CLARITY,URINE HAZY; COLOR,URINE YELLOW; GLUCOSE,URINE NEG (NEG)
[2018-09-08 18:44] LABS: BACTERIA,URINE FEW /HPF (0-FEW); HYALINE CASTS, URINE OCC /HPF; NITRITE,URINE NEG (NEG); SQUAMOUS EPITHELIAL CELL,UR FEW /LPF; UROBILINOGEN,URINE 1 mg/dL (0.2 mg/dL)
[2018-09-08 18:48] LABS: BARBITURATES NEG (NEG); BENZODIAZEPINES NEG (NEG); CANNABINOIDS POS (NEG); COCAINE NEG (NEG); METHADONE NEG (NEG); OPIATES NEG (NEG); PHENCYCLIDINE NEG (NEG)
[2018-09-08 18:49] LABS: AMPHETAMINE/METHAMPHETAMINE POS (NEG)
[2018-09-08] MEDS ORDERED: CEPH-264 PO (19:37)
[2018-09-08] MEDS ORDERED: PERM60CR12 TP (19:37)
[2018-09-08] MEDS ORDERED: PRED50TA PO (19:37)
[2018-09-08] MEDS ORDERED: diphenhydrAMINE HCL 25 MG CAPSULE PO ONE (20:00)
[2018-09-08] MEDS ORDERED: CEPHALEXIN 250 MG CAPSULE PO ONE (20:00)
[2018-09-08] MEDS ORDERED: predniSONE 20 MG TABLET PO ONE (20:00)
[2018-09-08 20:09] VITALS: BP 125/86
== END 2018-09-08 20:08 | disposition home or self-care (01) ==
LOC: ER 18:02
DX: T78.49XA Other allergy, initial encounter (principal); B88.9 Infestation, unspecified; J45.909 Unspecified asthma, uncomplicated; F17.210 Nicotine dependence, cigarettes, uncomplicated; F12.10 Cannabis abuse, uncomplicated; F15.10 Other stimulant abuse, uncomplicated; F10.20 Alcohol dependence, uncomplicated; Y90.0 Blood alcohol level of less than 20 mg/100 ml; W57.XXXA Bitten or stung by nonvenomous insect and other nonvenomous arthropods, initial encounter; Y93.89 Activity, other specified; Y92.89 Other specified places as the place of occurrence of the external cause; Y99.8 Other external cause status
CPT/HCPCS: 36415; 80307; 81001; 81025; 87086; 99284; J7512; Q0163

== ENCOUNTER 2018-10-22 04:22 | Emergency (ER) | payer OTHER ==
[~2018-10-22] VITALS: Ht 160 cm; Wt 59.0 kg
[~2018-10-22 04:22] MED LIST changes: +PERM60CR12 TP
[2018-10-22] MEDS ORDERED: CEPH-264 PO (04:41)
[2018-10-22] MEDS ORDERED: DICL50TA4 PO (04:41)
[2018-10-22 04:42] VITALS: BP 116/86
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
== END 2018-10-22 04:50 | disposition home or self-care (01) ==
LOC: ER 04:22
DX: S61.411A Laceration without foreign body of right hand, initial encounter (principal); J45.909 Unspecified asthma, uncomplicated; F17.210 Nicotine dependence, cigarettes, uncomplicated; F10.20 Alcohol dependence, uncomplicated; Y90.9 Presence of alcohol in blood, level not specified; X58.XXXA Exposure to other specified factors, initial encounter; Y93.89 Activity, other specified; Y92.89 Other specified places as the place of occurrence of the external cause; Y99.8 Other external cause status
CPT/HCPCS: 99283